=== PATIENT | female | born 1950 | race Hispanic/Latino ===

== ENCOUNTER 2021-07-18 12:44 | Emergency (ER) | payer MEDICARE, OTHER ==
[~2021-07-18] VITALS: Ht 167.6 cm; Wt 81.6 kg
[~2021-07-18 12:44] MED LIST: ATORVASTATIN CA20 MG PO; LOSARTAN POTASS25 MG PO; VITAMIN D250000 UNIT PO
[2021-07-18 13:29] LABS: BASOPHILS # (AUTO) 0.1 (0.0-0.1); BASOPHILS % 0.8 % (0.0-1.0); EOSINOPHILS # (AUTO) 0.1 (0.0-0.4); EOSINOPHILS % 1.5 % (0.0-6.0); HEMATOCRIT 38.1 % (34.2-44.1); HEMOGLOBIN 12.6 g/dL (12.0-16.0); LYMPHOCYTES # (AUTO) 2.3 (1.0-3.2); LYMPHOCYTES % 38.5 % (18.0-39.1); MEAN CORPUSCULAR HEMOGLOBIN 29.5 pg (28-32); MEAN CORPUSCULAR HGB CONC 33.1 g/dL (31-35); MEAN CORPUSCULAR VOLUME 89.2 fL (81-99); MONOCYTES # (AUTO) 0.5 (0.2-0.8); NEUTROPHILS % 49.9 % (38.7-80.0); PLATELET COUNT 235 x10e3/uL (140-360); RED BLOOD COUNT 4.27 x10e6/uL (3.6-5.1); RED CELL DISTRIBUTION WIDTH 13.1 % (11.7-14.4)
[2021-07-18 13:39] LABS: INR 0.96
[2021-07-18 13:40] LABS: PARTIAL THROMBOPLASTIN TIME 26.4 seconds (23.8-35.5)
[2021-07-18 13:56] LABS: ALBUMIN 4.3 g/dL (3.5-5.0); ALBUMIN/GLOBULIN RATIO 1.4 (0.8-2.0); ANION GAP 13.5 mmol/L (8-16); CALCIUM 9.5 mg/dL (8.4-10.2); CREATININE, SERUM 0.99 mg/dL (0.57-1.11); POTASSIUM 3.5 mmol/L (3.5-5.1)
[2021-07-18 14:02] LABS: CREATINE KINASE MB 1.5 ng/mL (0-5.0)
[2021-07-18] MEDS ORDERED: SODIUM CHLORIDE 0.9% 50ML 50 ML ONE (15:25)
[2021-07-18] MEDS ORDERED: IOPAMIDOL 370 MG/ML 200 ML INFUS..BTL INJ ONE (15:25)
[2021-07-18] MEDS ORDERED: SODIUM CHLORIDE 0.9% 1000ML 1,000 ML IV STA (15:38)
[2021-07-18 16:11] LABS: AMYLASE 78 U/L (25-125); LIPASE 23 U/L (8-78)
[2021-07-18 16:45] LABS: CLARITY,URINE CLEAR (CLEAR); COLOR,URINE YELLOW (YELLOW); KETONES,URINE NEGATIVE (NEGATIVE); LEUKOCYTE ESTERASE ,URINE NEGATIVE (NEGATIVE); NITRITE,URINE NEGATIVE (NEGATIVE); PROTEIN,URINE DIPSTICK NEGATIVE (NEGATIVE); URINE UROBILINOGEN 0.2 mg/dL (0.2 - 1)
[2021-07-18 16:57] LABS: BACTERIA,URINE RARE /HPF; EPITHELIAL CELLS,URINE FEW /LPF
== END 2021-07-18 17:30 | disposition home or self-care (01) ==
LOC: ER 13:02
DX: K59.00 Constipation, unspecified (principal); C56.9 Malignant neoplasm of unspecified ovary; R53.1 Weakness; R55 Syncope and collapse; R11.2 Nausea with vomiting, unspecified; M25.552 Pain in left hip; M25.551 Pain in right hip; I10 Essential (primary) hypertension; E11.9 Type 2 diabetes mellitus without complications; Z20.822 Contact with and (suspected) exposure to COVID-19; Z87.440 Personal history of urinary (tract) infections
CPT/HCPCS: 36415; 70450; 71045; 74177; 80053; 81001; 82150; 82550; 82553; 83690; 83735; 84484; 85025; 85610; 85730; 87086; 99284; J7030; Q9967; U0002; 87186

== ENCOUNTER 2022-03-11 19:57 | Observation (INO) | payer MEDICARE ==
[~2022-03-11] VITALS: Ht 167.6 cm; Wt 81.6 kg
[2022-03-11 21:29] LABS: INR 1.05; PROTHROMBIN TIME 14.6 seconds (11.9-14.5)
[2022-03-11 21:30] LABS: PARTIAL THROMBOPLASTIN TIME 29.2 seconds (23.8-35.5)
[2022-03-11 21:39] LABS: ALANINE AMINOTRANSFERASE 19 IU/L (0-55); ALBUMIN 3.7 g/dL (3.5-5.0); ALBUMIN/GLOBULIN RATIO 1.4 (0.8-2.0); ALKALINE PHOSPHATASE 76 IU/L (40-150); ANION GAP 10.5 mmol/L (8-16); BLOOD UREA NITROGEN 13 mg/dL (7-26); BUN/CREATININE RATIO 16 (6-25); CALCIUM 8.2 mg/dL (8.4-10.2); CARBON DIOXIDE 25 mmol/L (22-29); CHLORIDE 110 mmol/L (98-107); CREATINE KINASE 214 IU/L (29-168); CREATININE, SERUM 0.81 mg/dL (0.57-1.11); EST GLOMERULAR FILTRATION RATE 70 ML/MIN (60-); GLUCOSE 93 mg/dL (74-118); POTASSIUM 3.5 mmol/L (3.5-5.1); SODIUM 142 mmol/L (136-145)
[2022-03-11 21:42] LABS: BASOPHILS % 0.6 % (0.0-1.0); EOSINOPHILS # (AUTO) 0.2 (0.0-0.4); EOSINOPHILS % 2.6 % (0.0-6.0); HEMATOCRIT 38.4 % (34.2-44.1); HEMOGLOBIN 12.5 g/dL (12.0-16.0); LYMPHOCYTES # (AUTO) 2.7 (1.0-3.2); LYMPHOCYTES % 38.9 % (18.0-39.1); MEAN CORPUSCULAR HEMOGLOBIN 30.2 pg (28-32); MEAN CORPUSCULAR HGB CONC 32.6 g/dL (31-35); MEAN CORPUSCULAR VOLUME 92.8 fL (81-99); MONOCYTES # (AUTO) 0.7 (0.2-0.8); MONOCYTES % 9.6 % (4.4-11.3); NEUTROPHILS # (AUTO) 3.4 (2.1-6.9); NEUTROPHILS % 48.2 % (38.7-80.0); PLATELET COUNT 227 x10e3/uL (140-360); RED BLOOD COUNT 4.14 x10e6/uL (3.6-5.1); RED CELL DISTRIBUTION WIDTH 13.2 % (11.7-14.4)
[2022-03-11 22:25] LABS: CLARITY,URINE SL CLOUDY (CLEAR); COLOR,URINE YELLOW (YELLOW); KETONES,URINE NEGATIVE (NEGATIVE); LEUKOCYTE ESTERASE ,URINE NEGATIVE (NEGATIVE); NITRITE,URINE POSITIVE (NEGATIVE); PROTEIN,URINE DIPSTICK NEGATIVE (NEGATIVE); URINE UROBILINOGEN 0.2 mg/dL (0.2 - 1)
[2022-03-11 22:28] LABS: BACTERIA,URINE FEW /HPF; EPITHELIAL CELLS,URINE FEW /LPF; RBC,URINE 0-5 /HPF (0-5); WBC,URINE (MAN) 0-5 /HPF (0-5)
[2022-03-12] MEDS: SODIUM CHLORIDE 0.9% 1000ML 1,000 ML IV SCH ×3 (01:27→16:43)
[2022-03-12 06:08] LABS: BASOPHILS % 0.7 % (0.0-1.0); EOSINOPHILS # (AUTO) 0.2 (0.0-0.4); EOSINOPHILS % 2.8 % (0.0-6.0); HEMOGLOBIN 12.6 g/dL (12.0-16.0); LYMPHOCYTES # (AUTO) 2.8 (1.0-3.2); LYMPHOCYTES % 46.2 % (18.0-39.1); MEAN CORPUSCULAR HEMOGLOBIN 30.1 pg (28-32); MEAN CORPUSCULAR HGB CONC 32.3 g/dL (31-35); MEAN CORPUSCULAR VOLUME 93.1 fL (81-99); MONOCYTES # (AUTO) 0.6 (0.2-0.8); MONOCYTES % 10.3 % (4.4-11.3); NEUTROPHILS # (AUTO) 2.4 (2.1-6.9); NEUTROPHILS % 39.7 % (38.7-80.0); PLATELET COUNT 236 x10e3/uL (140-360); RED BLOOD COUNT 4.19 x10e6/uL (3.6-5.1); RED CELL DISTRIBUTION WIDTH 13.1 % (11.7-14.4)
[2022-03-12 06:35] LABS: ANION GAP 10.8 mmol/L (8-16); CALCIUM 8.3 mg/dL (8.4-10.2); CREATININE, SERUM 0.84 mg/dL (0.57-1.11); POTASSIUM 3.8 mmol/L (3.5-5.1)
[2022-03-12 15:15] VITALS: BP 165/65
[2022-03-12 15:35] VITALS: BP 160/65
[2022-03-12 15:38] VITALS: BP 160/65
[2022-03-12 20:17] VITALS: BP 171/71
[2022-03-12] MEDS ORDERED: LOSARTAN POTASSIUM 25 MG TAB PO SCH (21:00)
[2022-03-12] MEDS ORDERED: ATORVASTATIN 20 MG TAB PO SCH (21:00)
[2022-03-12 23:57] VITALS: BP 171/71
[2022-03-13] VITALS (9 sets, daily range): BP systolic 127–194; BP diastolic 63–91
[2022-03-13] MEDS: SODIUM CHLORIDE 0.9% 1000ML 1,000 ML IV SCH (05:44)
[2022-03-13] MEDS: ATORVASTATIN 20 MG TAB PO SCH (09:00)
[2022-03-13] MEDS: LOSARTAN POTASSIUM 25 MG TAB PO SCH (09:00)
[2022-03-13] MEDS ORDERED: HYDRALAZINE HCL 20 MG/ML VIAL IV PRN (17:15)
[2022-03-13] MEDS ORDERED: ACETAMINOPHEN 325 MG TAB PO PRN (17:15)
[2022-03-14 04:00] VITALS: BP 150/71
[2022-03-14 08:23] VITALS: BP 146/76
[2022-03-14 08:43] VITALS: BP 146/76
[2022-03-14] MEDS: ATORVASTATIN 20 MG TAB PO SCH (08:45)
[2022-03-14] MEDS: LOSARTAN POTASSIUM 25 MG TAB PO SCH (08:46)
[2022-03-14 12:06] VITALS: BP 147/60
[2022-03-14] MEDS ORDERED: COZAAR25 MG PO (12:07)
[2022-03-15] MEDS ORDERED: LOSARTAN POTASSIUM 25 MG TAB PO SCH (09:00)
== END 2022-03-14 14:03 | disposition home or self-care (01) ==
LOC: ER 20:20 → ERHOLD 23:55 → MED/SURG3 03-12 15:12
PROVIDERS: ADMIT Internal Medicine; ATTEND Internal Medicine
DX: I16.9 Hypertensive crisis, unspecified (principal); F41.9 Anxiety disorder, unspecified; E78.5 Hyperlipidemia, unspecified; M19.90 Unspecified osteoarthritis, unspecified site; Z20.822 Contact with and (suspected) exposure to COVID-19; K21.9 Gastro-esophageal reflux disease without esophagitis; E11.9 Type 2 diabetes mellitus without complications; G89.29 Other chronic pain; M54.9 Dorsalgia, unspecified; Z95.818 Presence of other cardiac implants and grafts; Z91.19 Patient's noncompliance with other medical treatment and regimen; Z85.43 Personal history of malignant neoplasm of ovary; Z79.899 Other long term (current) drug therapy
CPT/HCPCS: 36415 ×2; 70450; 71045; 80048; 80053; 81001; 82550; 82553; 83880; 84484; 85025 ×2; 85610; 85730; 93005; 93306; 93880; 99284; G0378 ×4; J0360; J7030 ×2; U0002

== ENCOUNTER 2022-06-01 12:05 | Emergency (ER) | payer MEDICARE ==
[~2022-06-01] VITALS: Ht 167.6 cm; Wt 81.6 kg
[~2022-06-01 12:05] MED LIST changes: +COZAAR25 MG PO
[2022-06-01 13:28] LABS: BASOPHILS % 0.3 % (0.0-1.0); EOSINOPHILS % 0.4 % (0.0-6.0); HEMATOCRIT 41.5 % (34.2-44.1); HEMOGLOBIN 13.5 g/dL (12.0-16.0); LYMPHOCYTES # (AUTO) 1.7 (1.0-3.2); MEAN CORPUSCULAR HEMOGLOBIN 29.5 pg (28-32); MEAN CORPUSCULAR HGB CONC 32.5 g/dL (31-35); MEAN CORPUSCULAR VOLUME 90.8 fL (81-99); MONOCYTES # (AUTO) 0.6 (0.2-0.8); MONOCYTES % 6.1 % (4.4-11.3); NEUTROPHILS # (AUTO) 8.1 (2.1-6.9); NEUTROPHILS % 76.9 % (38.7-80.0); PLATELET COUNT 228 x10e3/uL (140-360); RED BLOOD COUNT 4.57 x10e6/uL (3.6-5.1); RED CELL DISTRIBUTION WIDTH 12.8 % (11.7-14.4)
[2022-06-01 13:53] LABS: LIPASE 21 U/L (8-78)
[2022-06-01 13:54] LABS: ALBUMIN 4.1 g/dL (3.5-5.0); ALBUMIN/GLOBULIN RATIO 1.2 (0.8-2.0); ANION GAP 13.9 mmol/L (8-16); CALCIUM 9.1 mg/dL (8.4-10.2); CREATININE, SERUM 0.82 mg/dL (0.57-1.11); POTASSIUM 3.9 mmol/L (3.5-5.1)
[2022-06-01] MEDS ORDERED: IOPAMIDOL 370 MG/ML 100 ML INFUS..BTL INJ ONE (14:16)
== END 2022-06-01 18:13 | disposition home or self-care (01) ==
LOC: ER 12:11
DX: K59.00 Constipation, unspecified (principal); R10.30 Lower abdominal pain, unspecified; I10 Essential (primary) hypertension; E11.9 Type 2 diabetes mellitus without complications; F41.9 Anxiety disorder, unspecified; K21.9 Gastro-esophageal reflux disease without esophagitis; Z85.43 Personal history of malignant neoplasm of ovary
CPT/HCPCS: 36415; 74177; 80053; 83690; 84484; 85025; 93005; 99284; Q9967

== ENCOUNTER 2022-12-06 14:08 | Emergency (ER) | payer MEDICARE ==
[~2022-12-06] VITALS: Ht 167.6 cm; Wt 81.6 kg
[2022-12-06] MEDS ORDERED: ONDANSETRON HCL INJ 2MG/ML 2ML 2 MG/ML VIAL ONE (14:56)
[2022-12-06 15:12] LABS: BASOPHILS # (AUTO) 0.1 (0.0-0.1); BASOPHILS % 0.4 % (0.0-1.0); EOSINOPHILS % 0.3 % (0.0-6.0); HEMOGLOBIN 12.7 g/dL (12.0-16.0); LYMPHOCYTES # (AUTO) 1.7 (1.0-3.2); LYMPHOCYTES % 14.4 % (18.0-39.1); MEAN CORPUSCULAR HEMOGLOBIN 29.6 pg (28-32); MEAN CORPUSCULAR HGB CONC 32.6 g/dL (31-35); MEAN CORPUSCULAR VOLUME 90.9 fL (81-99); MONOCYTES % 8.6 % (4.4-11.3); NEUTROPHILS % 75.9 % (38.7-80.0); PLATELET COUNT 232 x10e3/uL (140-360); RED BLOOD COUNT 4.29 x10e6/uL (3.6-5.1); RED CELL DISTRIBUTION WIDTH 13.4 % (11.7-14.4)
[2022-12-06] MEDS ORDERED: ONDANSETRON HCL INJ 2MG/ML 2ML 2 MG/ML VIAL IV PRN (15:15)
[2022-12-06] MEDS ORDERED: SODIUM CHLORIDE 0.9% 1000ML 1,000 ML IV ONE (15:15)
[2022-12-06] MEDS ORDERED: ACETAMINOPHEN 325 MG TAB PO ONE (15:15)
[2022-12-06 15:24] LABS: ALBUMIN 3.5 g/dL (3.5-5.0); CALCIUM 8.7 mg/dL (8.4-10.2); CREATININE, SERUM 1.06 mg/dL (0.57-1.11)
[2022-12-06] MEDS ORDERED: IOPAMIDOL 370 MG/ML 100 ML INFUS..BTL INJ ONE (15:52)
[2022-12-06 15:54] LABS: CLARITY,URINE HAZY (CLEAR); COLOR,URINE YELLOW (YELLOW)
[2022-12-06 15:55] LABS: KETONES,URINE NEGATIVE (NEGATIVE); LEUKOCYTE ESTERASE ,URINE SMALL (NEGATIVE); NITRITE,URINE NEGATIVE (NEGATIVE); PROTEIN,URINE DIPSTICK NEGATIVE (NEGATIVE); URINE UROBILINOGEN 0.2 mg/dL (0.2 - 1)
[2022-12-06 16:10] LABS: BACTERIA,URINE MODERATE /HPF; RBC,URINE 0-5 /HPF (0-5); WBC,URINE (MAN) >50 /HPF (0-5)
[2022-12-06] MEDS ORDERED: ONDANSETRON ODT4 MG PO (16:53)
[2022-12-06] MEDS ORDERED: CEFDINIR300 MG PO (16:53)
[2022-12-06] MEDS ORDERED: DICYCLOMINE HCL20 MG PO (16:53)
== END 2022-12-06 17:50 | disposition home or self-care (01) ==
LOC: ER 14:27
DX: R50.9 Fever, unspecified (principal); K52.9 Noninfective gastroenteritis and colitis, unspecified; N39.0 Urinary tract infection, site not specified; R11.2 Nausea with vomiting, unspecified; E11.65 Type 2 diabetes mellitus with hyperglycemia; I10 Essential (primary) hypertension
CPT/HCPCS: 36415; 71045; 74177; 80053; 81001; 83605; 83690; 84484; 85025; 87040; 87086; 99284; J2405; J2543; J7030; Q9967